=== PATIENT | male | born 1995 | race Asian ===

== ENCOUNTER 2016-11-13 08:16 | Emergency (ER) | payer OTHER ==
[~2016-11-13] VITALS: Ht 172.7 cm; Wt 59.0 kg
[~2016-11-13 08:16] MED LIST: NKM
[2016-11-13 08:21] VITALS: BP 128/59
[2016-11-13 08:30] VITALS: BP 128/59
--- NOTE | 2016-11-13 08:36 | Emergency Room Report ---
History of Present Illness General Chief Complaint: Altered Mental Status Source: Patient, EMS Present Illness HPI 21YOM BIBEMS and [employer] for medical clearance Patient arrested after alleged theft from [employer] Was chased down by employees, then arrested While in custody, patient allegedly sweating States he injected 1/2 gram heroin about 4 hours ago Does heroin multiple times a day Also does meth, but not today Denies abd pain, nausea/vomiting, pilorection, rhinorrhea Denies other medical problems Allergies: Coded Allergies: No Known Allergies (Unverified , 11/13/16) Patient History Past Medical History: none Past Surgical History: none Pertinent Family History: none Social History: Reports: drug use Immunizations: UTD Reviewed Nursing Documentation: PMH: Agreed, PSxH: Agreed Nursing Documentation-PMH Past Medical History: No Stated History Review of Systems All Other Systems: negative except mentioned in HPI Physical Exam Vital Signs Date Time Temp Pulse Resp B/P Pulse Ox O2 Delivery O2 Flow Rate FiO2 11/13/16 08:11 97.2 110 16 126/74 97 Room Air Sp02 EP Interpretation: reviewed, normal General Appearance: normal inspection, well appearing, no apparent distress, alert, GCS 15, non-toxic Head: normocephalic, atraumatic Eyes: bilateral eye EOMI, bilateral eye PERRL ENT: normal ENT inspection, hearing grossly normal, normal voice Neck: normal inspection, full range of motion, supple, no bony tend Respiratory: normal inspection, lungs clear, normal breath sounds, no respiratory distress, no retraction, no wheezing Cardiovascular #1: regular rate, rhythm, no edema Gastrointestinal: normal inspection, normal bowel sounds, non tender, soft, no guarding, no hernia Genitourinary: no CVA tenderness Musculoskeletal: normal inspection, back normal, normal range of motion, Cami' s Sign negative Neurologic: normal inspection, alert, oriented x3, responsive, 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 Afebrile No signs of opiod withdrawal currently Alert and oriented Atraumatic Medically cleared for booking with [employer] Last Vital Signs Date Time Temp Pulse Resp B/P Pulse Ox O2 Delivery O2 Flow Rate FiO2 11/13/16 08:11 97.2 110 16 126/74 97 Room Air Status: improved Disposition: D/C TO LAW ENFORCEMENT IN CUST Condition: Improved Patient Instructions: Medical Screening Exam Additional Instructions: MEDICALLY CLEARED FOR BOOKING WITH [employer] ROMINA AMES M.D. Nov 13, 2016 08:36
== END 2016-11-13 08:30 ==
LOC: EDBD 08:16 → EMR 08:25
DX: R41.82 Altered mental status, unspecified (principal); Z02.89 Encounter for other administrative examinations; F19.10 Other psychoactive substance abuse, uncomplicated
CPT/HCPCS: 99283

== ENCOUNTER 2017-02-22 09:08 | Emergency (ER) | payer MEDICAID, OTHER ==
[~2017-02-22] VITALS: Ht 180.3 cm; Wt 56.7 kg
--- NOTE | 2017-02-22 09:22 | Emergency Room Report ---
History of Present Illness General Chief Complaint: General Complaint Source: Patient Present Illness HPI 21-year-old male brought in by ambulance with itchy all over body after injecting heroin last night Patient states he's had a history before of it before using opiates including heroin Denies chest pain, shortness of breath, throat tightness, abdominal pain Has history of using crystal meth but states didn't use anything else last night Allergies: Coded Allergies: No Known Allergies (Unverified , 11/13/16) Patient History Past Medical History: none Past Surgical History: none Pertinent Family History: none Social History: Reports: drug use Immunizations: UTD Reviewed Nursing Documentation: PMH: Agreed, PSxH: Agreed Nursing Documentation-PMH Past Medical History: No Stated History Review of Systems All Other Systems: negative except mentioned in HPI Physical Exam Vital Signs Date Time Temp Pulse Resp B/P (MAP) Pulse Ox O2 Delivery O2 Flow Rate FiO2 02/22/17 09:10 98.4 120 19 110/54 22 Room Air Sp02 EP Interpretation: reviewed, normal General Appearance: normal inspection, well appearing, no apparent distress, alert, GCS 15, non-toxic, other - disheveled, malodorous Head: normocephalic, atraumatic Eyes: bilateral eye PERRL, bilateral eye EOMI ENT: normal ENT inspection, hearing grossly normal, normal voice Neck: normal inspection, full range of motion, supple, no bony tend Respiratory: normal inspection, lungs clear, normal breath sounds, no rhonchi, no respiratory distress, no retraction, no accessory muscle use, no wheezing, speaking full sentences Cardiovascular #1: regular rate, rhythm, no edema Gastrointestinal: normal inspection, normal bowel sounds, non tender, soft, no guarding, no hernia Genitourinary: no CVA tenderness Musculoskeletal: normal inspection, back normal, normal range of motion, Cami' s Sign negative Neurologic: normal inspection, alert, oriented x3, responsive, 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, motor strength/tone normal, speech normal Psychiatric: normal inspection, judgement/insight normal, mood/affect normal Skin: normal inspection, normal color, no rash Lymphatic: normal inspection Medical Decision Making Diagnostic Impression: Primary Impression: Genital pruritus Additional Impression: Heroin abuse ER Course 21-year-old male with generalized pruritus to using heroin last night No obvious rash, no angioedema, low suspicion for anaphylaxis likely opiate induced pruritus Was given oral Benadryl and prednisone in the ER with improvement Counseled on drug abuse Discharge with by mouth Benadryl as needed ER course: Patient has remained stable during ED stay. Disposition: Patient is to be discharged to home. Prescriptions given are benadryl Patient is instructed to follow up with their primary care doctor within 5 days. Strict return precautions discussed with patient such as fever, chills, worsening/severe pain, nausea, vomiting, which may indicate severe illness. Patient verbalizes understanding and agrees with plan. Please note that this Emergency Department Report was dictated using [employer] technician technology software, occasionally this can lead to erroneous entry secondary to interpretation by the dictation equipment Last Vital Signs Date Time Temp Pulse Resp B/P (MAP) Pulse Ox O2 Delivery O2 Flow Rate FiO2 02/22/17 09:10 98.4 120 19 110/54 22 Room Air Status: improved Disposition: HOME, SELF-CARE ROMINA AMES M.D. Feb 22, 2017 09:22
[2017-02-22] MEDS ORDERED: BENADRYL25 M3 PO (09:23)
[2017-02-22 10:00] VITALS: BP 109/74
[2017-02-22 10:02] VITALS: BP 109/74
== END 2017-02-22 10:23 | disposition home or self-care (01) ==
LOC: EDBD 09:08 → EMR 09:35
DX: L29.9 Pruritus, unspecified (principal); F11.10 Opioid abuse, uncomplicated
CPT/HCPCS: 99284; J7512